=== PATIENT | female | born 1995 | race Caucasian/White ===

== ENCOUNTER 2016-09-07 17:24 | Emergency (ER) | payer OTHER ==
[2016-09-07] MEDS ORDERED: DIAZEPAM 2 MG TABLET PO ONE (18:58)
--- NOTE | 2016-09-07 19:01 | ER Document Report ---
ED Psych Disorder / Suicide - General Chief Complaint: Suicidal Ideation Stated Complaint: PSYCH EVAL Time Seen by Provider: 09/07/16 18:58 Mode of Arrival: Ambulatory Information source: Patient TRAVEL OUTSIDE OF THE [place] IN LAST 30 DAYS: No - HPI Onset: Last week Quality of pain: No pain Associated symptoms: Anxious, Depressed Notes: Patient is a 20-year-old female who presents to the emergency room complaining of anxiety and depression, states that she had an elective approximately 1 week ago and since then has been having some negative thoughts about herself, she has a history of mental illness in the past with cutting behavior, she does say that she cut her left wrist superficially 4 days ago but denies being suicidal or homicidal, she is not currently in any type of treatment program and is requesting assistance with resources to help her with counseling, stating that she does not want to be started on medications at this time, she is accompanied by her - Related Data Allergies/Adverse Reactions: No Known Allergies Allergy (Verified 09/07/16 17:27) Past Medical History - General Information source: Patient - Social History Smoking Status: Unknown if Ever Smoked Family History: Reviewed & Not Pertinent Patient has suicidal ideation: Yes Patient has homicidal ideation: No Renal/ Medical History: Denies: Hx Peritoneal Dialysis Review of Systems - Review of Systems Constitutional: No symptoms reported EENT: No symptoms reported Cardiovascular: No symptoms reported Respiratory: No symptoms reported Gastrointestinal: No symptoms reported Genitourinary: No symptoms reported Female Genitourinary: No symptoms reported Musculoskeletal: No symptoms reported Skin: No symptoms reported Hematologic/Lymphatic: No symptoms reported Neurological/Psychological: See HPI -: Yes All other systems reviewed and negative Physical Exam - Vital signs Vitals: Temp Pulse Resp BP Pulse Ox 98.2 F 72 16 118/78 98 09/07/16 17:27 09/07/16 17:27 09/07/16 17:27 09/07/16 17:27 09/07/16 17:27 Interpretation: Normal - General General appearance: Appears well, Alert - HEENT Head: Normocephalic, Atraumatic Eyes: Normal Conjunctiva: Normal Extraocular movements intact: Yes Eyelashes: Normal Pupils: PERRL - Respiratory Respiratory status: No respiratory distress - Cardiovascular Rhythm: Regular - Abdominal Inspection: Normal - Back Back: Normal, Nontender - Extremities General upper extremity: Normal inspection, Nontender, Normal color, Normal ROM , Normal temperature General lower extremity: Normal inspection, Nontender, Normal color, Normal ROM , Normal temperature, Normal weight bearing. No: Bobbi's sign - Neurological Neuro grossly intact: Yes Cognition: Normal Orientation: AAOx4 [place] Coma Scale Eye Opening: Spontaneous [place] Coma Scale Verbal: Oriented [place] Coma Scale Motor: Obeys Commands [place] Coma Scale Total: 15 Speech: Normal Motor strength normal: LUE, RUE, LLE, RLE Sensory: Normal - Psychological Associated symptoms: Anxious, Depressed - Skin Skin Temperature: Warm Skin Moisture: Dry Skin Color: Normal Course - Re-evaluation Re-evalutation: 09/07/16 19:50 Patient with anxiety and depression related to a recent elective , history of mental illness previously not currently in any treatment, she is not suicidal or homicidal, and her is at her side with her, to ensure her safety, she was discharged with a list of resources and a prescription for a small amount of Valium until she is able to follow-up, advised to return if any additional concerns, patient acknowledges understanding and agreement with this plan - Vital Signs Vital signs: Temp Pulse Resp BP Pulse Ox 98.2 F 72 16 118/78 98 09/07/16 17:27 09/07/16 17:27 09/07/16 17:27 09/07/16 17:27 09/07/16 17:27 Discharge - Discharge Clinical Impression: Anxiety Condition: Stable Disposition: HOME, SELF-CARE Instructions: Anxiety ([facility]), Depression ([facility]) Additional Instructions: Follow up with your primary care provider and mental health provider in one to 2 days. Return to the emergency room immediately if symptoms worsen or any additional concerns. Prescriptions: Diazepam [Valium 2 mg Tablet] 2 mg PO TID #15 tablet
[2016-09-07 21:13] VITALS: BP 120/76
== END 2016-09-07 19:05 | disposition home or self-care (01) ==
LOC: ER 17:24
DX: F41.9 Anxiety disorder, unspecified (principal); F32.9 Major depressive disorder, single episode, unspecified
CPT/HCPCS: 99283; J3490

== ENCOUNTER 2017-03-06 15:01 | Emergency (ER) | payer OTHER ==
[2017-03-06 16:04] VITALS: BP 128/88
[2017-03-06 16:13] LABS: APPEARANCE,URINE CLOUDY; BILIRUBIN,URINE NEGATIVE (NEGATIVE); GLUCOSE, URINE NEGATIVE (NEGATIVE); KETONES,URINE NEGATIVE (NEGATIVE); LEUKOCYTE ESTERASE,URINE TRACE (NEGATIVE); NITRITE,URINE NEGATIVE (NEGATIVE); PROTEIN,URINE NEGATIVE (NEGATIVE); URINE SPECIFIC GRAVITY 1.027; UROBILINOGEN,URINE NEGATIVE mg/dL (<2.0)
[2017-03-06 16:25] LABS: URINE BARBITURATES SCREEN NEGATIVE; URINE METHADONE SCREEN NEGATIVE; URINE OPIATES LOW NEGATIVE; URINE PHENCYCLIDINE SCREEN NEGATIVE
[2017-03-06 16:33] LABS: ABSOLUTE EOSINOPHILS # (AUTO) 0.4 10^3/uL (0.0-0.6); ABSOLUTE LYMPHOCYTES (AUTO) 1.8 10^3/uL (0.5-4.7); ABSOLUTE MONOCYTES (AUTO) 0.8 10^3/uL (0.1-1.4); ABSOLUTE NEUT (AUTO) 5.7 10^3/uL (1.7-8.2); BASOPHILS % (AUTO) 0.6 % (0-2); EOSINOPHILS % (AUTO) 4.4 % (0-6); HEMATOCRIT 40.4 % (36.0-47.0); HEMOGLOBIN 13.9 g/dL (12.0-15.5); HGB HCT DIFFERENCE 1.3; LYMPHOCYTES % (AUTO) 20.8 % (13-45); MEAN CORPUSCULAR HEMOGLOBIN 30.8 pg (27.0-33.4); MEAN CORPUSCULAR HGB CONC 34.3 g/dL (32.0-36.0); MEAN CORPUSCULAR VOLUME 90 fl (80-97); MONOCYTES % (AUTO) 8.9 % (3-13); RED BLOOD COUNT 4.51 10^6/uL (3.72-5.28); RED CELL DISTRIBUTION WIDTH 12.5 % (11.5-14.0); SEGMENTED NEUTROPHILS % (AUTO) 65.3 % (42-78); WHITE BLOOD COUNT 8.7 10^3/uL (4.0-10.5)
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
[2017-03-06 16:51] LABS: ALANINE AMINOTRANSFERASE 28 U/L (9-52); ALBUMIN 4.4 g/dL (3.5-5.0); ALKALINE PHOSPHATASE 74 U/L (38-126); ANION GAP 12 (5-19); ASPARTATE AMINO TRANSFERASE 19 U/L (14-36); BILIRUBIN,DIRECT 0.1 mg/dL (0.0-0.4); BILIRUBIN,TOTAL 0.3 mg/dL (0.2-1.3); BLOOD UREA NITROGEN 14 mg/dL (7-20); CALCIUM 9.5 mg/dL (8.4-10.2); CARBON DIOXIDE 27 mmol/L (22-30); CHLORIDE 103 mmol/L (98-107); CREATININE RESULT 0.76 mg/dL (0.52-1.25); GLUCOSE 91 mg/dL (75-110); POTASSIUM 3.9 mmol/L (3.6-5.0); SODIUM 141.7 mmol/L (137-145); TOTAL PROTEIN 7.7 g/dL (6.3-8.2)
[2017-03-06 16:52] LABS: ALCOHOL < 10 mg/dL (NONE DETECTED)
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
--- NOTE | 2017-03-06 23:12 | EKG REPORT ---
SEVERITY:- NORMAL ECG - SINUS RHYTHM : Confirmed by: Talon Hart 06-Mar-2017 23:11:48
== END 2017-03-06 17:08 | disposition home or self-care (01) ==
LOC: ER 15:01
DX: F41.9 Anxiety disorder, unspecified (principal)
CPT/HCPCS: 36415; 80053; 80307; 81001; 84703; 85025; 93005; 93010; 99284